=== PATIENT | female | born 1940 | race Caucasian/White ===

== ENCOUNTER 2018-07-06 09:59 | Inpatient (IN) | payer OTHER ==
[~2018-07-06] VITALS: Ht 165.1 cm; Wt 76.7 kg
--- NOTE | ~2018-07-06 | PATH ---
[facility] [address] [place] [address] PATHOLOGY RPT PROCEDURE Name: BENJA MCKEON Room #: 458-P [facility] IN M.R.#: [id number] Admission: 07/06/18 Date of : 42 Discharge: Report #: [id number] Path Case #: [id number] [facility] Accession Number: [id number] . 01 Material submitted: . RIGHT ISCHIAL WOUND . 01 Clinical history: . Ischial wound . 02 Diagnosis: Right ischial wound, debridement with irrigation: - Ulceration along with marked acute inflammation extending into deep subcutaneous tissue, compatible with wound. . (IUV:mml; 07/08/18) QLM/07/08/2018 . 02 Electronically signed: . Honey Samuel MD, Pathologist NPI- [id number] . 01 Gross description: . Received in formalin labeled "Benja Mckeon, Rt ischial wound," are three fragments of yellow-woods soft tissue and possible skin ranging from 1.1 x 0.8 x 0.6 cm to 3.3 x 1.6 x 1.4 cm in greatest dimensions. Sectioning reveals pale pink-woods to dusky saha-woods cut surfaces. All three segments are submitted representatively in cassette A1. (DAC; 07/07/2018) XDC/XDC . 02 Pathologist provided ICD-10: L89.319 . 02 CPT . 827157 Specimen Comment: A courtesy copy of this report has been sent to Specimen Comment: [phone], . Specimen Comment: Report sent to / DR PATEL Specimen Comment: A duplicate report has been generated due to demographic updates. Performed at: 01 [facility] [address] [id number] MD Brian Ceja MD Phone: [phone] Performed at: [address] [address] PATHOLOGY RPT PROCEDURE Name: MARCIO MCKEONKathia Petersen Room #: 458-P [facility] IN M.R.#: [id number] Admission: 07/06/18 Date of : 42 Discharge: Report #: [id number] Path Case #: [id number] [address] [place] [id number] MD Honey Samuel MD Phone: [phone]
--- NOTE | ~2018-07-06 | EKG ---
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 : 1940 Requested By: Valeriy Franklin Order Number: [id number] MD: Kwesi Lantigua Measurements Intervals [place] Rate: 86 P: -22 NC: 163 QRS: 25 QRSD: 93 T: 25 QT: 392 QTc: 469 Interpretive Statements Sinus rhythm Baseline wander in lead(s) V2 No previous ECG available for comparison Electronically Signed On 07-07-2018 8:44:42 DIRECTOR OF PHYSICIAN PRACTICES by Kwesi Lantigua [email or web address] <ELECTRONICALLY SIGNED> By: Kwesi Lantigua MD, [facility] 07/07/18 0844 1221 1221 Kwesi Lantigua MD, FACC /EPI
--- NOTE | ~2018-07-06 | HC ---
[facility] [place] [address] CONSULTATION Name: BENJA MCKEON Room #: 458-P [facility] IN ..#: [id number] Admission: 07/06/18 Attend Phys: Valeriy Amezquita Discharge: Date of : 42 Report #: [id number] THIS REPORT FOR: //name// CC: Valeriy Colladoy Nikmaggi DATE OF SERVICE: 07/07/2018 CHIEF COMPLAINT: Stage 4 right ischial pressure ulceration. HISTORY OF PRESENT ILLNESS: This is a 78-year-old female patient with a history of underlying schizoaffective disorder, dementia, and bipolar disorder who has a persistent right ischial pressure ulceration. She has had persistent diarrhea. She has had ongoing issues with wound healing including moderate malnutrition, but certainly concern and there has been great concern for fecal contamination of the wound. Her was agreeable to a diverting colostomy. She was admitted to the hospital on the and underwent diverting colostomy, as well as surgical debridement of the right ischial pressure ulceration. The patient denies significant pain at this time. She is a little bit apprehensive as is typical for her. PAST MEDICAL HISTORY: Once again is positive for advanced dementia, schizoaffective disorder, bipolar disorder, advanced debility, moderate protein-calorie malnutrition and the stage 4 pressure ulceration to the right ischial region that has been previously debrided. ALLERGIES: SULFA. MEDICATIONS: Acetaminophen, ascorbic acid, citalopram, Clozapine, Colace, benazepril, enoxaparin, famotidine, hydrocodone, lactulose, morphine, , Zosyn, polyethylene glycol, potassium chloride, tamsulosin. SOCIAL HISTORY: Negative for alcohol or tobacco use. She is . Her is not accompanying her today. FAMILY HISTORY: Unknown. REVIEW OF SYSTEMS: Unobtainable due to the patient's level of dementia. PHYSICAL EXAMINATION: VITAL SIGNS: At this time include temperature 36.1, pulse rate 88, respiration 16, blood pressure 127/55. GENERAL: This is a chronically ill-appearing female patient who appears to be in mild discomfort. HEENT: Normocephalic. NECK: Supple. [facility] [address] [place] [address] CONSULTATION Name: BENJA MCKEON Room #: 458-P [facility] IN ..#: [id number] Admission: 07/06/18 Attend Phys: Valeriy Amezquita Discharge: Date of : 42 Report #: [id number] LUNGS: Clear. ABDOMEN: Soft, diverting colostomy with a little bit of bloody output noted. The ostomy itself appears to be pink and viable. Right ischial region demonstrates a stage 4 pressure ulceration that is relatively healthy, clean, and granulating. There is palpable bone in the base. EXTREMITIES: Shows some stiffness. Pulses are palpable. LABORATORY DATA: Includes sodium 135, potassium 4.6, CO2 27, BUN 13, creatinine 0.6, glucose 112. White blood cell count is 14.0, hemoglobin 13.6. Sed rate is in the normal range at 23. CLINICAL IMPRESSION: 1. Stage 4 right ischial pressure ulcer, status post surgical debridement. 2. History of underlying osteomyelitis. 3. Status post diverting colostomy. 4. Advanced debility. 5. Moderate protein-calorie malnutrition. RECOMMENDATIONS: At this point in time, the patient will be continued on antibiotic therapy. We will start wound VAC for the ischial pressure ulceration. She will need low air loss mattress, q. 2 hour turning and repositioning, aggressive nutritional support. Likely, she will require 4-6 weeks of antibiotics per infectious disease evaluation. I appreciate being asked to see her again in consultation. <ELECTRONICALLY SIGNED> By: Macro Antonio Dupree MD 07/08/18 2154 2255 2348 Marco Antonio Dupree MD /nt
[~2018-07-06 09:59] MED LIST: ARICEPT 5 MG TAB5 MG PO; CELEXA20 MG PO; CENTRUM SILVER1 EAC4 PO; CLOZAPINE200 MG PO; FLOMAX0.4 MG PO; FOSAMAX 70 MG T70 MG PO; KLOR-CON20 ME1 PO; LACTULOSE20 GM/30 M PO; PEPCID20 MG PO; PROTEIN POWDER480 GM PO; TYLENOL325 MG PO; VITAMINC500 PO
[2018-07-06 12:34] LABS: HEMATOCRIT 40.9 % (37.0-47.0); HEMOGLOBIN 13.7 gm/dL (12.0-15.0)
[2018-07-06 12:51] VITALS: BP 124/42
[2018-07-06 13:35] LABS: CALCIUM 9.9 mg/dL (8.5-10.1); CREATININE 0.5 mg/dL (0.6-1.0); POTASSIUM 3.8 mmol/L (3.5-5.1)
[2018-07-06 18:09] VITALS: BP 117/65
[2018-07-06 19:08] VITALS: BP 137/63
[2018-07-06 20:10] VITALS: BP 143/83
[2018-07-07 03:30] VITALS: BP 107/53
[2018-07-07 05:40] LABS: ABSOLUTE NEUTROPHILS 10.2 thou/uL (1.4-8.2); BASOPHILS 0.9 % (0.0-2.0); EOSINOPHILS 1.2 % (0.0-3.0); HEMATOCRIT 40.2 % (37.0-47.0); HEMOGLOBIN 13.6 gm/dL (12.0-15.0); LYMPHOCYTES 14.9 % (24.0-44.0); MCH 28.8 pg (26.0-34.0); MCHC 33.7 g/dL (28.0-37.0); MCV 85.5 fL (80.0-100.0); MONOCYTES 10.1 % (1.0-8.0); PLATELET COUNT 309 thou/uL (150-400); POLYS 72.9 % (36.0-66.0); RBC 4.71 mil/uL (4.20-5.00); RDW 14.7 % (10.5-14.5)
[2018-07-07 06:02] LABS: CALCIUM 9.8 mg/dL (8.5-10.1); CREATININE 0.6 mg/dL (0.6-1.0); MAGNESIUM 1.9 mg/dL (1.8-2.4); POTASSIUM 4.6 mmol/L (3.5-5.1)
[2018-07-07 07:35] VITALS: BP 93/52
[2018-07-07 15:46] VITALS: BP 112/53
[2018-07-07] MEDS ORDERED: DEPAKOTE ER500 MG PO (20:54)
[2018-07-07 21:03] VITALS: BP 127/55
[2018-07-08 03:20] VITALS: BP 114/46
[2018-07-08 07:59] VITALS: BP 113/45
[2018-07-08 14:45] VITALS: BP 140/65
[2018-07-08 19:15] VITALS: BP 134/52
[2018-07-09 05:03] VITALS: BP 116/58
[2018-07-09 07:24] VITALS: BP 121/54
[2018-07-09 11:40] LABS: ABSOLUTE NEUTROPHILS 9.7 thou/uL (1.4-8.2); BASOPHILS 0.7 % (0.0-2.0); EOSINOPHILS 1.8 % (0.0-3.0); HEMATOCRIT 37.6 % (37.0-47.0); HEMOGLOBIN 12.1 gm/dL (12.0-15.0); LYMPHOCYTES 9.9 % (24.0-44.0); MCH 27.6 pg (26.0-34.0); MCHC 32.2 g/dL (28.0-37.0); MCV 85.7 fL (80.0-100.0); MONOCYTES 9.1 % (1.0-8.0); PLATELET COUNT 274 thou/uL (150-400); POLYS 78.5 % (36.0-66.0); RBC 4.39 mil/uL (4.20-5.00); WBC 12.3 thou/uL (4.0-11.0)
[2018-07-09 11:47] LABS: CALCIUM 9.5 mg/dL (8.5-10.1); CREATININE 0.6 mg/dL (0.6-1.0); MAGNESIUM 1.8 mg/dL (1.8-2.4); POTASSIUM 3.6 mmol/L (3.5-5.1)
[2018-07-09 14:42] VITALS: BP 114/51
[2018-07-09 20:29] VITALS: BP 136/67
[2018-07-10 04:09] VITALS: BP 132/64
[2018-07-10 08:18] VITALS: BP 118/44
[2018-07-10] MEDS ORDERED: ENOXAPARIN40 MG/0.1 SUBQ (13:34)
[2018-07-10] MEDS ORDERED: COLACE 100 MG100 MG PO (13:34)
[2018-07-10] MEDS ORDERED: MIRALAX17 GM PO (13:34)
[2018-07-10] MEDS ORDERED: HYDROCODON-ACE1 EAC7 PO (13:34)
== END 2018-07-10 16:28 | DRG 853 ==
LOC: PRE 09:59 → TBA 11:53 → 4W 11:53
PROVIDERS: Anesthesiology; Internal Medicine; Nurse Practitioner; Surgery
DX: A41.9 Sepsis, unspecified organism (principal); L89.214 Pressure ulcer of right hip, stage 4; J96.01 Acute respiratory failure with hypoxia; M86.8X8 Other osteomyelitis, other site; E44.0 Moderate protein-calorie malnutrition; F03.90 Unspecified dementia, unspecified severity, without behavioral disturbance, psychotic disturbance, mood disturbance, and anxiety; F25.0 Schizoaffective disorder, bipolar type; B96.5 Pseudomonas (aeruginosa) (mallei) (pseudomallei) as the cause of diseases classified elsewhere; B95.62 Methicillin resistant Staphylococcus aureus infection as the cause of diseases classified elsewhere; K21.9 Gastro-esophageal reflux disease without esophagitis; K52.9 Noninfective gastroenteritis and colitis, unspecified; Z88.2 Allergy status to sulfonamides; Z68.28 Body mass index [BMI] 28.0-28.9, adult; Z90.49 Acquired absence of other specified parts of digestive tract
CPT/HCPCS: 10047; 50010; 50101; 50386; 50403; 56524; 57119; 57120; 57188; 57189; 62110; 62900; 70005

== ENCOUNTER → 2018-10-13 | Outpatient (CLI) | payer OTHER ==
[~2018-10-13] MED LIST changes: +COLACE 100 MG100 MG PO; +DEPAKOTE ER500 MG PO; +ENOXAPARIN40 MG/0.1 SUBQ; +HYDROCODON-ACE1 EAC7 PO; +MIRALAX17 GM PO
== END ==
LOC: HYPER 10-06 13:37
DX: L89.314 Pressure ulcer of right buttock, stage 4 (principal); M86.151 Other acute osteomyelitis, right femur; E44.0 Moderate protein-calorie malnutrition; K21.9 Gastro-esophageal reflux disease without esophagitis; F03.90 Unspecified dementia, unspecified severity, without behavioral disturbance, psychotic disturbance, mood disturbance, and anxiety; F32.9 Major depressive disorder, single episode, unspecified; Z93.3 Colostomy status